=== PATIENT | female | born 1935 | race Caucasian/White ===

== ENCOUNTER 2016-10-02 10:10 | Day surgery (SDC) | payer OTHER ==
[2016-10-02 11:11] LABS: MCH 34.1 pg (25.7-33.7); MCHC 35.1 g/dl (32.0-36.0); MEAN CELL VOLUME 97.2 fl (80-96); MEAN PLT VOLUME 7.9 fl (7.5-11.1); PLATELET COUNT 248 K/MM3 (134-434); RDW 14.9 % (11.6-15.6); WHITE BLOOD COUNT 9.5 K/mm3 (4.0-10.0)
[2016-10-02 15:56] VITALS: BP 140/78; PULSE 82; TEMP 98.8
== END 2016-10-02 16:00 | disposition home or self-care (01) ==
LOC: J7W 10:10 → JBLOOD 10:10
PROVIDERS: ATTEND Specialist
PROC: 30233N1 Transfusion of Nonautologous Red Blood Cells into Peripheral Vein, Percutaneous Approach (ICD-10-PCS; principal; 2016-10-02)
DX: D64.9 Anemia, unspecified (principal)
CPT/HCPCS: 36415; 36430; 85027; 86850; 86900; 86901; 86922; P9038; P9058

== ENCOUNTER 2017-01-17 09:57 | Day surgery (SDC) | payer OTHER ==
[2017-01-17 17:38] VITALS: BP 149/80; PULSE 83; TEMP 98
== END 2017-01-17 17:43 | disposition home or self-care (01) ==
LOC: JBLOOD 09:57 → J7W 10:00 → JBLOOD 17:43
PROVIDERS: ATTEND Specialist
PROC: 30233N1 Transfusion of Nonautologous Red Blood Cells into Peripheral Vein, Percutaneous Approach (ICD-10-PCS; principal; 2017-01-17)
DX: D64.9 Anemia, unspecified (principal)
CPT/HCPCS: 36430; 86850; 86900; 86901; 86922; P9038; P9058

== ENCOUNTER 2018-04-04 11:07 | Day surgery (SDC) | payer OTHER ==
[2018-04-04] MEDS ORDERED: ATORVASTATIN CA 10 MG TABLET (FP) PO SCH (22:00)
[2018-04-05] MEDS ORDERED: LEVOTHYROXINE NA 25 MCG TABLET (FP) PO SCH (07:00)
[2018-04-05 10:51] VITALS: BP 134/68; PULSE 82; TEMP 98.7
== END 2018-04-05 10:54 | disposition home or self-care (01) ==
LOC: JBLOOD 11:07 → J7W 11:08 → JBLOOD 04-05 10:54
PROVIDERS: ATTEND Specialist
PROC: 30233N1 Transfusion of Nonautologous Red Blood Cells into Peripheral Vein, Percutaneous Approach (ICD-10-PCS; principal; 2018-04-04)
DX: D64.9 Anemia, unspecified (principal)
CPT/HCPCS: 36430; 86850; 86900; 86901; 86922; P9038; P9058